=== PATIENT | male | born 1980 | race Caucasian/White ===

== ENCOUNTER 2023-02-16 09:12 | Outpatient (CLI) | payer BC, SELFPAY | END 2023-02-16 09:13 | disposition home or self-care (01) | PROVIDERS: Visit Provider Family Medicine | DX: Z00.00 Encounter for general adult medical examination without abnormal findings (principal); R53.83 Other fatigue | CPT/HCPCS: 80048; 80061; 85025 ==

== ENCOUNTER 2023-03-10 09:26 | Outpatient (CLI) | payer BC, SELFPAY ==
--- NOTE | 2023-03-10 10:34 | W.ANESCHARGE ---
Anesthesia Charges Start Date/Time Anesthesia Start Date: 03/10/23 Anesthesia Start Time: 10:08 Stop Date/Time Anesthesia Stop Date: 03/10/23 Anesthesia Stop Time: 10:31
--- NOTE | 2023-03-10 10:59 | W.ANESCHARGE ---
Anesthesia Charges Start Date/Time Anesthesia Start Date: 03/10/23 Anesthesia Start Time: 10:08 Stop Date/Time Anesthesia Stop Date: 03/10/23 Anesthesia Stop Time: 10:31
== END 2023-03-10 09:27 | disposition home or self-care (01) ==
PROVIDERS: PCP Family Medicine; Visit Provider Internal Medicine
DX: Z12.11 Encounter for screening for malignant neoplasm of colon (principal); Z83.719 Family history of colon polyps, unspecified; D12.5 Benign neoplasm of sigmoid colon
CPT/HCPCS: 00811; 00812; 45380; 88305; J2704